=== PATIENT | male | born 1985 | race Two or more races ===

== ENCOUNTER 2022-01-27 00:29 | Emergency (ER) | payer SELFPAY ==
[~2022-01-27] VITALS: Ht 170.2 cm; Wt 67.7 kg
[2022-01-27 01:08] VITALS: BP 130/84
[2022-01-27] MEDS ORDERED: LIDOCAINE VISCOUS 2% 15ML UD PO ONE (01:30)
== END 2022-01-27 04:10 | disposition left against medical advice (07) ==
LOC: ER 00:29
DX: R07.0 Pain in throat (principal); Z53.21 Procedure and treatment not carried out due to patient leaving prior to being seen by health care provider